=== PATIENT | female | born 1970 | race African-American/Black ===

== ENCOUNTER 2019-07-22 12:15 | Inpatient (IN) | payer BC ==
[2019-07-22 13:15] VITALS: BMI 24.5
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
[2019-07-22] MEDS ORDERED: MAGNESIUM HYDROX 2400MG/30ML ORAL SUSPENSION 30 ML CUP PO PRN (16:55)
[2019-07-22] MEDS ORDERED: MAGNESIUM CITRATE 300 ML BOTTLE PO PRN (16:55)
[2019-07-22] MEDS ORDERED: NICOTINE POLACRILEX 2 MG GUM BUC PRN (16:55)
[2019-07-22] MEDS ORDERED: BISMUTH SUBSALICYLATE 524 MG/30 ML UD PO PRN (16:55)
[2019-07-22] MEDS ORDERED: METHOCARBAMOL 500 MG TABLET PO PRN (16:55)
[2019-07-22] MEDS ORDERED: MENTHOL/PHENOL 1 EACH UD MM PRN (16:55)
[2019-07-22] MEDS ORDERED: MELATONIN 5 MG TABLETS PO PRN (16:55)
[2019-07-22] MEDS ORDERED: ACETAMINOPHEN 325 MG TABLET (FP) PO PRN ×2 (16:55)
[2019-07-22] MEDS ORDERED: MAG HYDROX/AL HYDROX/SIMETH 30 ML UNIT-DOSE CUP PO PRN (16:55)
[2019-07-22] MEDS ORDERED: IBUPROFEN 400 MG TABLET (FP) PO PRN (16:55)
[2019-07-22] MEDS ORDERED: cloNIDine HCL 0.1 MG TABLET PO PRN (16:55)
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
[2019-07-22] MEDS ORDERED: HALOPERIDOL 5 MG TABLET (FP) PO PRN (17:08)
[2019-07-22] MEDS ORDERED: ALBUTEROL SO4 0.083% IH SOL 2.5 MG/3 ML VIAL.NEB. NEB PRN (17:12)
[2019-07-22] MEDS ORDERED: TETANUS IMMUNE GLOBULIN 250 UNITS DISP.SYRIN IM ONE (17:22)
[2019-07-22] MEDS ORDERED: METHADONE HCL 10 MG TABLET (FOR DETOX USE ONLY) PO ONE (18:15)
[2019-07-22] MEDS: THIAMINE HCL 100 MG TABLET (FP) PO SCH (22:02)
[2019-07-22] MEDS: CEPHALEXIN MONOHYDRATE 500 MG CAPSULE (UD) PO SCH (22:02)
[2019-07-22] MEDS: hydrOXYzine PAMOATE 25 MG CAPSULE (FP) PO PRN (22:02)
[2019-07-22] MEDS: NYSTATIN 100000 UNIT/GM TOPICAL OINTMENT 15 GM TUBE TP SCH (22:57)
[2019-07-22] MEDS: DIVALPROEX SODIUM 500 MG TABLET E.C. PO SCH (22:58)
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
[2019-07-23] MEDS ORDERED: METHADONE HCL 10 MG TABLET (FOR DETOX USE ONLY) ONE (09:13)
[2019-07-23] MEDS ORDERED: METHADONE HCL 5 MG TABLET (FOR DETOX USE ONLY) ONE (09:13)
[2019-07-23] MEDS ORDERED: METHADONE (DETOX) 20 MG, METHADONE (DETOX) 5 MG PO ONE (10:00)
[2019-07-23 10:23] LABS: ALBUMIN 3.1 g/dl (3.4-5.0); BILIRUBIN,TOTAL 0.2 mg/dL (0.2-1); CALCIUM 8.9 mg/dL (8.5-10.1); CREATININE 0.9 mg/dL (0.55-1.3); POTASSIUM 4.7 mmol/L (3.5-5.1); TOT PROT 6.1 g/dl (6.4-8.2)
[2019-07-23 10:24] LABS: HEMATOCRIT 38.4 % (32.4-45.2); HEMOGLOBIN 12.4 GM/dL (10.7-15.3); MCH 25.8 pg (25.7-33.7); MCHC 32.2 g/dl (32.0-36.0); MEAN CELL VOLUME 80.2 fl (80-96); MEAN PLT VOLUME 7.6 fl (7.5-11.1); PLATELET COUNT 303 K/MM3 (134-434); RBC 4.78 M/mm3 (3.60-5.2); WHITE BLOOD COUNT 5.5 K/mm3 (4.0-10.0)
[2019-07-23] MEDS ORDERED: diazePAM 5 MG TABLET PO PRN (11:21)
--- NOTE | 2019-07-23 11:24 | PN ---
BHS COWS - Scale Resting Pulse: 0= [place] 80 or Below Sweatin= Chills/Flushing Restless Observation: 1= Difficult to Sit Still Pupil Size: 0= Normal to Room Light Bone or Joint Aches: 2= Severe Diffuse Aches Runny Nose/ Eye Tearin= Nasal Congestion GI Upset > 30mins: 0= None Tremor Observation of Outstretched Hands: 1= Tremor [place], Not Seen Yawning Observation: 1= 1-2x During Session Anxiety or Irritability: 1=Feels Anxious/Irritable Goose Flesh Skin: 0=Smooth Skin COWS Score: 8 BHS Progress Note (SOAP) Subjective: sweats shakes irritable agitation body aches irritable Objective: 07/23/19 11:23 Vital Signs Temperature 97.9 F 07/23/19 09:36 Pulse Rate 70 07/23/19 09:36 Respiratory Rate 18 07/23/19 09:36 Blood Pressure 109/67 07/23/19 09:36 O2 Sat by Pulse Oximetry (%) Laboratory Tests 07/22/19 07/22/19 07/22/19 15:21 17:12 21:53 WBC RBC Hgb Hct MCV MCH MCHC RDW Plt Count MPV Sodium Potassium Chloride Carbon Dioxide Anion Gap BUN Creatinine Est GFR (CKD-EPI)AfAm Est GFR (CKD-EPI)NonAf POC Glucometer 67 127 Random Glucose Calcium Total Bilirubin AST ALT Alkaline Phosphatase Total Protein Albumin POC Urine HCG, Qual Negative 07/23/19 07/23/19 07/23/19 06:39 08:00 08:00 WBC 5.5 RBC 4.78 Hgb 12.4 Hct 38.4 MCV 80.2 MCH 25.8 MCHC 32.2 RDW 14.0 Plt Count 303 MPV 7.6 Sodium 142 Potassium 4.7 Chloride 108 H Carbon Dioxide 30 Anion Gap 4 L BUN 17.0 Creatinine 0.9 Est GFR (CKD-EPI)AfAm 88.25 Est GFR (CKD-EPI)NonAf 76.14 POC Glucometer 111 Random Glucose 88 Calcium 8.9 Total Bilirubin 0.2 AST 24 ALT 29 Alkaline Phosphatase 86 Total Protein 6.1 L Albumin 3.1 L POC Urine HCG, Qual labs noted aaox3 ambulating no acute distress Assessment: 07/23/19 11:24 withdrawals noted Plan: continue detox increase fluids
[2019-07-23] MEDS: NYSTATIN 100000 UNIT/GM TOPICAL OINTMENT 15 GM TUBE TP SCH ×2 (11:30→21:41)
[2019-07-23] MEDS: NICOTINE 21 MG/24 HOURS TOPICAL PATCH TD SCH (11:30)
[2019-07-23] MEDS: PRENATAL VITAMINS W/ FOLIC ACID TABLET (FP) PO SCH (11:31)
[2019-07-23] MEDS: CEPHALEXIN MONOHYDRATE 500 MG CAPSULE (UD) PO SCH ×2 (11:31→21:41)
[2019-07-23] MEDS: DIVALPROEX SODIUM 500 MG TABLET E.C. PO SCH (11:31)
[2019-07-23] MEDS ORDERED: DIPHTH,PERTUSS(ACELL),TET 0.5 ML DISP.SYRIN IM ONE (12:00)
[2019-07-23 14:40] LABS: RPR NONREACTIVE (NONREACTIVE)
[2019-07-23] MEDS: hydrOXYzine PAMOATE 25 MG CAPSULE (FP) PO PRN (21:41)
[2019-07-23] MEDS: THIAMINE HCL 100 MG TABLET (FP) PO SCH (21:41)
[2019-07-24] MEDS ORDERED: METHADONE HCL 10 MG TABLET (FOR DETOX USE ONLY) PO ONE (10:00)
--- NOTE | 2019-07-24 11:02 | PN ---
BHS COWS - Scale Resting Pulse: 0= [place] 80 or Below Sweatin= Chills/Flushing Restless Observation: 1= Difficult to Sit Still Pupil Size: 0= Normal to Room Light Bone or Joint Aches: 1= Mild Discomfort Runny Nose/ Eye Tearin= Nasal Congestion GI Upset > 30mins: 0= None Tremor Observation of Outstretched Hands: 1= Tremor [place], Not Seen Yawning Observation: 1= 1-2x During Session Anxiety or Irritability: 1=Feels Anxious/Irritable Goose Flesh Skin: 0=Smooth Skin COWS Score: 7 BHS Progress Note (SOAP) Subjective: sweats shakes interrupted sleep irritable Objective: 07/24/19 11:02 Vital Signs Temperature 97.1 F L 07/24/19 09:25 Pulse Rate 70 07/24/19 09:25 Respiratory Rate 18 07/24/19 09:25 Blood Pressure 108/69 07/24/19 09:25 O2 Sat by Pulse Oximetry (%) Laboratory Tests 07/22/19 07/22/19 07/22/19 15:21 17:12 21:53 WBC RBC Hgb Hct MCV MCH MCHC RDW Plt Count MPV Sodium Potassium Chloride Carbon Dioxide Anion Gap BUN Creatinine Est GFR (CKD-EPI)AfAm Est GFR (CKD-EPI)NonAf POC Glucometer 67 127 Random Glucose Hemoglobin A1c % Calcium Total Bilirubin AST ALT Alkaline Phosphatase Total Protein Albumin POC Urine HCG, Qual Negative RPR Titer HIV 1&2 Antibody Screen HIV P24 Antigen 07/23/19 07/23/19 07/23/19 06:39 08:00 08:00 WBC 5.5 RBC 4.78 Hgb 12.4 Hct 38.4 MCV 80.2 MCH 25.8 MCHC 32.2 RDW 14.0 Plt Count 303 MPV 7.6 Sodium 142 Potassium 4.7 Chloride 108 H Carbon Dioxide 30 Anion Gap 4 L BUN 17.0 Creatinine 0.9 Est GFR (CKD-EPI)AfAm 88.25 Est GFR (CKD-EPI)NonAf 76.14 POC Glucometer 111 Random Glucose 88 Hemoglobin A1c % Calcium 8.9 Total Bilirubin 0.2 AST 24 ALT 29 Alkaline Phosphatase 86 Total Protein 6.1 L Albumin 3.1 L POC Urine HCG, Qual RPR Titer HIV 1&2 Antibody Screen HIV P24 Antigen 07/23/19 07/23/19 07/23/19 08:00 08:00 16:44 WBC RBC Hgb Hct MCV MCH MCHC RDW Plt Count MPV Sodium Potassium Chloride Carbon Dioxide Anion Gap BUN Creatinine Est GFR (CKD-EPI)AfAm Est GFR (CKD-EPI)NonAf POC Glucometer 119 Random Glucose Hemoglobin A1c % 6.3 Calcium Total Bilirubin AST ALT Alkaline Phosphatase Total Protein Albumin POC Urine HCG, Qual RPR Titer Nonreactive HIV 1&2 Antibody Screen Negative HIV P24 Antigen Negative 07/24/19 06:22 WBC RBC Hgb Hct MCV MCH MCHC RDW Plt Count MPV Sodium Potassium Chloride Carbon Dioxide Anion Gap BUN Creatinine Est GFR (CKD-EPI)AfAm Est GFR (CKD-EPI)NonAf POC Glucometer 96 Random Glucose Hemoglobin A1c % Calcium Total Bilirubin AST ALT Alkaline Phosphatase Total Protein Albumin POC Urine HCG, Qual RPR Titer HIV 1&2 Antibody Screen HIV P24 Antigen labs noted aaox3 ambulating no acute distress Assessment: 07/24/19 11:02 withdrawals Plan: continue detox increase fluids
[2019-07-24] MEDS: NYSTATIN 100000 UNIT/GM TOPICAL OINTMENT 15 GM TUBE TP SCH ×2 (11:13→23:05)
[2019-07-24] MEDS: NICOTINE 21 MG/24 HOURS TOPICAL PATCH TD SCH (11:13)
[2019-07-24] MEDS: PRENATAL VITAMINS W/ FOLIC ACID TABLET (FP) PO SCH (11:14)
[2019-07-24] MEDS: CEPHALEXIN MONOHYDRATE 500 MG CAPSULE (UD) PO SCH ×2 (11:14→22:12)
[2019-07-24] MEDS: THIAMINE HCL 100 MG TABLET (FP) PO SCH (22:12)
[2019-07-24] MEDS: hydrOXYzine PAMOATE 25 MG CAPSULE (FP) PO PRN (22:14)
[2019-07-25] MEDS ORDERED: METHADONE HCL 5 MG TABLET (FOR DETOX USE ONLY) ONE (09:30)
[2019-07-25] MEDS ORDERED: METHADONE HCL 10 MG TABLET (FOR DETOX USE ONLY) ONE (09:31)
[2019-07-25] MEDS ORDERED: METHADONE (DETOX) 10 MG, METHADONE (DETOX) 5 MG PO ONE (10:00)
[2019-07-25] MEDS: CEPHALEXIN MONOHYDRATE 500 MG CAPSULE (UD) PO SCH ×2 (10:21→22:36)
[2019-07-25] MEDS: PRENATAL VITAMINS W/ FOLIC ACID TABLET (FP) PO SCH (10:21)
[2019-07-25] MEDS: NICOTINE 21 MG/24 HOURS TOPICAL PATCH TD SCH (10:21)
[2019-07-25] MEDS: NYSTATIN 100000 UNIT/GM TOPICAL OINTMENT 15 GM TUBE TP SCH ×2 (10:22→22:37)
--- NOTE | 2019-07-25 12:04 | PN ---
BHS COWS - Scale Resting Pulse: 0= [place] 80 or Below Sweatin=Flushed/Facial Moisture Restless Observation: 1= Difficult to Sit Still Pupil Size: 0= Normal to Room Light Bone or Joint Aches: 1= Mild Discomfort Runny Nose/ Eye Tearin= None GI Upset > 30mins: 0= None Tremor Observation of Outstretched Hands: 1= Tremor [place], Not Seen Yawning Observation: 0= None Anxiety or Irritability: 1=Feels Anxious/Irritable Goose Flesh Skin: 0=Smooth Skin COWS Score: 6 BHS Progress Note (SOAP) Subjective: sweats shakes agitation Objective: 07/25/19 12:03 Vital Signs Temperature 97.0 F L 07/25/19 09:40 Pulse Rate 76 07/25/19 09:40 Respiratory Rate 18 07/25/19 09:40 Blood Pressure 125/92 07/25/19 09:40 O2 Sat by Pulse Oximetry (%) aaox3 ambulating no acute distress Assessment: 07/25/19 12:04 withdrawals Plan: continue detox
[2019-07-25] MEDS: THIAMINE HCL 100 MG TABLET (FP) PO SCH (22:35)
[2019-07-26] MEDS ORDERED: METHADONE HCL 10 MG TABLET (FOR DETOX USE ONLY) PO ONE (10:00)
--- NOTE | 2019-07-26 10:51 | PN ---
BHS COWS - Scale Resting Pulse: 0= [place] 80 or Below Sweatin= No chills or Flushing Restless Observation: 0= Sits Still Pupil Size: 0= Normal to Room Light Bone or Joint Aches: 1= Mild Discomfort Runny Nose/ Eye Tearin= None GI Upset > 30mins: 0= None Tremor Observation of Outstretched Hands: 1= Tremor [place], Not Seen Yawning Observation: 1= 1-2x During Session Anxiety or Irritability: 1=Feels Anxious/Irritable Goose Flesh Skin: 0=Smooth Skin COWS Score: 4 BHS Progress Note (SOAP) Subjective: agitation Objective: 07/26/19 10:51 Vital Signs Temperature 98.2 F 07/26/19 10:08 Pulse Rate 71 07/26/19 10:08 Respiratory Rate 18 07/26/19 10:08 Blood Pressure 136/84 07/26/19 10:08 O2 Sat by Pulse Oximetry (%) aaox3 ambulating no acute distress Assessment: 07/26/19 10:51 mild withdrawals Plan: continue detox d/c in am
[2019-07-26] MEDS: NYSTATIN 100000 UNIT/GM TOPICAL OINTMENT 15 GM TUBE TP SCH (11:06)
[2019-07-26] MEDS: CEPHALEXIN MONOHYDRATE 500 MG CAPSULE (UD) PO SCH (11:06)
[2019-07-26] MEDS: PRENATAL VITAMINS W/ FOLIC ACID TABLET (FP) PO SCH (11:06)
[2019-07-26] MEDS: NICOTINE 21 MG/24 HOURS TOPICAL PATCH TD SCH (11:06)
[2019-07-26 13:33] VITALS: BP 133/72; PULSE 74; TEMP 97.9
--- NOTE | 2019-07-26 14:34 | PN ---
BHS Progress Note (SOAP) Subjective: i am feeling better Objective: 07/26/19 14:33 Vital Signs Temperature 97.9 F 07/26/19 13:32 Pulse Rate 74 07/26/19 13:32 Respiratory Rate 16 07/26/19 13:32 Blood Pressure 133/72 07/26/19 13:32 O2 Sat by Pulse Oximetry (%) aaox3 ambulating no acute distress Assessment: 07/26/19 14:34 no s/s of withdrawals Plan: d/c today.
--- NOTE | 2019-07-26 14:37 | DS ---
[facility] Detox Discharge Summary Admission Date: 07/22/19 Discharge Date: 07/26/19 - History Present History: Alcohol Dependence, Cannabis Dependence, Cocaine Dependence, Opioid Dependence - Physical Exam Results Vital Signs: Vital Signs Temperature 97.9 F 07/26/19 13:32 Pulse Rate 74 07/26/19 13:32 Respiratory Rate 16 07/26/19 13:32 Blood Pressure 133/72 07/26/19 13:32 O2 Sat by Pulse Oximetry (%) Pertinent Admission Physical Exam Findings: Vital Signs Temperature 97.9 F 07/26/19 13:32 Pulse Rate 74 07/26/19 13:32 Respiratory Rate 16 07/26/19 13:32 Blood Pressure 133/72 07/26/19 13:32 O2 Sat by Pulse Oximetry (%) Laboratory Tests 07/22/19 07/22/19 07/22/19 15:21 17:12 21:53 WBC RBC Hgb Hct MCV MCH MCHC RDW Plt Count MPV Sodium Potassium Chloride Carbon Dioxide Anion Gap BUN Creatinine Est GFR (CKD-EPI)AfAm Est GFR (CKD-EPI)NonAf POC Glucometer 67 127 Random Glucose Hemoglobin A1c % Calcium Total Bilirubin AST ALT Alkaline Phosphatase Total Protein Albumin POC Urine HCG, Qual Negative RPR Titer HIV 1&2 Antibody Screen HIV P24 Antigen 07/23/19 07/23/19 07/23/19 06:39 08:00 08:00 WBC 5.5 RBC 4.78 Hgb 12.4 Hct 38.4 MCV 80.2 MCH 25.8 MCHC 32.2 RDW 14.0 Plt Count 303 MPV 7.6 Sodium 142 Potassium 4.7 Chloride 108 H Carbon Dioxide 30 Anion Gap 4 L BUN 17.0 Creatinine 0.9 Est GFR (CKD-EPI)AfAm 88.25 Est GFR (CKD-EPI)NonAf 76.14 POC Glucometer 111 Random Glucose 88 Hemoglobin A1c % Calcium 8.9 Total Bilirubin 0.2 AST 24 ALT 29 Alkaline Phosphatase 86 Total Protein 6.1 L Albumin 3.1 L POC Urine HCG, Qual RPR Titer HIV 1&2 Antibody Screen HIV P24 Antigen 07/23/19 07/23/19 07/23/19 08:00 08:00 16:44 WBC RBC Hgb Hct MCV MCH MCHC RDW Plt Count MPV Sodium Potassium Chloride Carbon Dioxide Anion Gap BUN Creatinine Est GFR (CKD-EPI)AfAm Est GFR (CKD-EPI)NonAf POC Glucometer 119 Random Glucose Hemoglobin A1c % 6.3 Calcium Total Bilirubin AST ALT Alkaline Phosphatase Total Protein Albumin POC Urine HCG, Qual RPR Titer Nonreactive HIV 1&2 Antibody Screen Negative HIV P24 Antigen Negative 07/24/19 07/24/19 07/25/19 06:22 16:48 07:12 WBC RBC Hgb Hct MCV MCH MCHC RDW Plt Count MPV Sodium Potassium Chloride Carbon Dioxide Anion Gap BUN Creatinine Est GFR (CKD-EPI)AfAm Est GFR (CKD-EPI)NonAf POC Glucometer 96 87 79 Random Glucose Hemoglobin A1c % Calcium Total Bilirubin AST ALT Alkaline Phosphatase Total Protein Albumin POC Urine HCG, Qual RPR Titer HIV 1&2 Antibody Screen HIV P24 Antigen 07/26/19 06:42 WBC RBC Hgb Hct MCV MCH MCHC RDW Plt Count MPV Sodium Potassium Chloride Carbon Dioxide Anion Gap BUN Creatinine Est GFR (CKD-EPI)AfAm Est GFR (CKD-EPI)NonAf POC Glucometer 193 Random Glucose Hemoglobin A1c % Calcium Total Bilirubin AST ALT Alkaline Phosphatase Total Protein Albumin POC Urine HCG, Qual RPR Titer HIV 1&2 Antibody Screen HIV P24 Antigen aaox3 ambulating no acute distress - Treatment Hospital Course: Detox Protocol Followed, Detoxed Safely, Responded well, Discharged Condition Good, Rehab Referral Accepted Patient has Accepted a Rehab Referral to: referral provided - Medication Discharge Medications: Ambulatory Orders Benztropine Mesylate [Cogentin -] 1 mg PO BID #60 tablet 12/10/15 Divalproex [Depakote -] 500 mg PO BID #60 tablet.ec 12/10/15 Haloperidol [Haldol -] 5 mg PO BID PRN #60 tablet 12/10/15 - Diagnosis (1) Substance induced mood disorder Current Visit: Yes Status: Acute (2) Asthma Current Visit: Yes Status: Chronic Qualifiers: Asthma severity: mild Asthma persistence: intermittent (3) Cocaine dependence, uncomplicated Current Visit: Yes Status: Chronic (4) Opioid dependence with withdrawal Current Visit: Yes Status: Chronic (5) Schizophrenia Current Visit: No Status: Acute (6) Alcohol dependence with uncomplicated withdrawal Current Visit: Yes Status: Chronic (7) Anxiety disorder Current Visit: No Status: Chronic Qualifiers: Anxiety disorder type: unspecified anxiety disorder Qualified Code(s): F41.9 - Anxiety disorder, unspecified (8) Cannabis dependence Current Visit: No Status: Chronic (9) Nicotine dependence Current Visit: Yes Status: Chronic Qualifiers: Nicotine product type: cigarettes Substance use status: uncomplicated Qualified Code(s): F17.210 - Nicotine dependence, cigarettes, uncomplicated (10) Schizoaffective disorder Current Visit: No Status: Chronic Qualifiers: Schizoaffective disorder type: unspecified Qualified Code(s): F25.9 - Schizoaffective disorder, unspecified - AMA Did Patient Leave Against Medical Advice: No
[2019-07-27] MEDS ORDERED: METHADONE HCL 5 MG TABLET (FOR DETOX USE ONLY) PO ONE (06:00)
== END 2019-07-26 14:46 | disposition home or self-care (01) | DRG 773 ==
LOC: YASAS 12:15 → Y6N 16:50
PROVIDERS: ADMIT Allergy & Immunology; ATTEND Allergy & Immunology
PROC: HZ2ZZZZ Detoxification Services for Substance Abuse Treatment (ICD-10-PCS; principal; 2019-07-22)
DX: F10.230 Alcohol dependence with withdrawal, uncomplicated (principal); F11.23 Opioid dependence with withdrawal; F14.20 Cocaine dependence, uncomplicated; F12.20 Cannabis dependence, uncomplicated; F17.210 Nicotine dependence, cigarettes, uncomplicated; F25.9 Schizoaffective disorder, unspecified; F19.24 Other psychoactive substance dependence with psychoactive substance-induced mood disorder; F41.9 Anxiety disorder, unspecified; J45.20 Mild intermittent asthma, uncomplicated
CPT/HCPCS: 36415; 80053; 81025; 82962; 83036; 85027; 86593; 87389